=== PATIENT | male | born 1980 | race American Indian/Alaskan Native ===

== ENCOUNTER 2019-03-21 09:50 | Emergency (ER) | payer SELFPAY ==
--- NOTE | 2019-03-21 10:14 | Emergency Department Report ---
HPI - General Chief Complaint: Extremity Injury, Lower Time Seen by Provider: 03/21/19 09:57 - HPI HPI: 38-year-old -German male presents to the emergency department with a complaint of some pain going down his left leg that has been going on for the past 1.5 weeks. Initially he hurt his lower back while at work while lifting heavy items that they were loading and unloading off of a truck. A few days later the pain started "shooting down my left side." Sometimes it would stop at the knee and other times go down towards the foot. Recently the pain is more in the left thigh. No swelling, skin color change. No recent travel. The patient has not taken anything for her symptoms prior to presentation. He says that it is currently greatly improved compared to what it was. No problems with bowel or bladder, numbness, or any neurological deficits. ED Past Medical Hx - Past Medical History Previous Medical History?: No - Surgical History Past Surgical History?: No - Social History Smoking Status: Never Smoker Substance Use Type: None - Medications Home Medications: Home Medications Medication Instructions Recorded Confirmed Last Taken Type Cyclobenzaprine [Flexeril] 10 mg PO TID PRN #10 tablet 03/21/19 Unknown Rx predniSONE [Deltasone] 20 mg PO QDAY #5 tab 03/21/19 Unknown Rx ED Review of Systems ROS: Stated complaint: LFT LEG NERVE PAIN Other details as noted in HPI Comment: All other systems reviewed and negative Constitutional: denies: chills, fever Musculoskeletal: back pain (resolved), arthralgia, myalgia. denies: joint swelling Skin: denies: rash, lesions Neurological: denies: weakness, numbness Physical Exam - Physical Exam Vital Signs: Vital Signs 03/21/19 09:53 Temperature 98.2 F Pulse Rate 83 Respiratory 16 Rate Blood Pressure 133/83 [Right] O2 Sat by Pulse 99 Oximetry Physical Exam: GENERAL: The patient is well-developed well-nourished. HENT: Normocephalic. Atraumatic. Patient has moist mucous membranes. EYES: Extraocular motions are intact. NECK: Supple. Trachea is midline. ABDOMEN: There is no abdominal distention. SKIN: Skin is warm and dry. NEURO: The patient is awake, alert, and oriented. The patient is cooperative. The patient has no focal neurologic deficits. Normal speech. MUSCULOSKELETAL: Unable to reproduce left thigh pain to palpation. No obvious deformity. There is no limitation range of motion. ED Course Vital Signs 03/21/19 09:53 Temperature 98.2 F Pulse Rate 83 Respiratory 16 Rate Blood Pressure 133/83 [Right] O2 Sat by Pulse 99 Oximetry ED Medical Decision Making - Medical Decision Making Overall the patient's symptoms appear consistent with some sciatica. At this point it is mostly left upper leg/thigh pain. No swelling or edema, skin color change, obvious deformity. Patient ambulates without any difficulty. Vital signs stable throughout his ED course. He will be given a muscle relaxer and a referral for an orthopedist. He will return to the ER with any worsening of his symptoms or any acute distress. - Differential Diagnosis sciatica, muscle spasm, radiculopathy Critical Care Time: No Critical care attestation.: If time is entered above; I have spent that time in minutes in the direct care of this critically ill patient, excluding procedure time. ED Disposition Clinical Impression: Left leg pain Disposition: - TO HOME OR SELFCARE Is pt being admited?: No Condition: Stable Instructions: Sciatica (ED), Lumbar Radiculopathy (ED) Additional Instructions: Please follow-up with a primary care physician in the next few days. I am giving you a referral for a local orthopedist, Dr. Beatty. Please return to the emergency Department with any worsening of your symptoms or any acute distress. You have been prescribed a medication that is sedating and therefore should not be taken prior to driving, working, and responsible for children and in no way should be mixed with alcohol of any quantity. Prescriptions: predniSONE [Deltasone] 20 mg PO QDAY #5 tab Cyclobenzaprine [Flexeril] 10 mg PO TID PRN #10 tablet PRN Reason: Muscle Spasm Referrals: JAD BEATTY MD [Staff Physician] - 2-3 Days Forms: Work/School Release Form(ED) Time of Disposition: 10:15
[2019-03-21 10:46] VITALS: BP 130/80
== END 2019-03-21 10:30 | disposition home or self-care (01) ==
LOC: ED 09:50
DX: M79.605 Pain in left leg (principal)